=== PATIENT | female | born 1965 | race Two or more races ===

== ENCOUNTER 2024-02-11 13:45 | Inpatient (IN) | payer BC ==
[~2024-02-11] VITALS: Ht 160 cm; Wt 98.0 kg
[~2024-02-11 13:45] MED LIST: LEVO175T4 PO
[2024-02-11 14:42] LABS: Hematocrit 40.5 % (36.0-46.0); Hemoglobin 13.1 g/dL (12.2-16.2); Mean Corpuscular Hemoglobin 27.7 pg (28.0-32.0); Mean Corpuscular Hgb Conc. 32.4 g/dL (32.0-36.0); Mean Corpuscular Volume 85.5 fL (80.0-100.0); Platelet Count (auto) 377 10^3/uL (140-450); Red Blood Cells 4.74 10^6/uL (4.0-5.20); Red Cell Distribution Width 15.2 % (11.8-14.3)
--- NOTE | 2024-02-11 14:47 | ED.PDOC ---
History of Present Illness HPI Comments 58-year-old female who comes in with chief complaint of headache as well as dizziness since 10:00 a.m. this morning. The patient now is also complaining of some nausea. She went to the restroom and states that she really could not get her legs going. She has had a recent UTI. She states that the headache as a 10/10. She is having some mild shortness for breath as well as the epigastric pain and also feels like her arms are squeezing at this time. She is accompanied in the emergency department's by her . 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: No Pertinent 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 History Family History Family History: Family hx of DM, Family hx of heart arlet Social History Smoker: Cigarettes Alcohol: Rarely Drugs: Denies Drug Use Lives In: Home Constitutional: denies: chills, diaphoresis, fatigue, fever, malaise, sweats, weakness, others EENTM: denies: blurred vision, double vision, ear bleeding, ear discharge, ear drainage, ear pain, ear ringing, eye pain, eye redness, hearing loss, mouth pain, mouth swelling, nasal discharge, nose bleeding, nose congestion, nose pain, photophobia, tearing, throat pain, throat swelling, voice changes, others Respiratory: reports: shortness of breath; denies: cough, hemoptysis, orth opnea, SOB at rest, SOB with excertion, stridor, wheezing, others Cardiovascular: denies: chest pain, dizzy spells, diaphoresis, Dyspnea on exertion, edema, irregular heart beat, left arm pain, lightheadedness, palpitations, PND, syncope, others Gastrointestinal: reports: abdominal pain; denies: abdomen distended, blood streaked bowels, constipated, diarrhea, dysphagia, difficulty swallowing, hematemesis, melena, nausea, poor appetite, poor fluid intake, rectal bleeding, rectal pain, vomiting, others Genitourinary: denies: abnormal vagina bleeding, burning, dyspareunia, dysuria, flank pain, frequency, hematuria, incontinence, pain, , vagina discharge, urgency, others Neurological: reports: dizziness; denies: fainting, headache, left sided numbness, left sided weakness, numbness, paresthesia, pre-existing deficit, right sided numbness, right sided weakness, seizure, speech problems, tingling, tremors, weakness, others Musculoskeletal: denies: back pain, gout, joint pain, joint swelling, muscle pain, muscle stiffness, neck pain, others Integumetry: denies: bruises, change in color, change in hair/nails, dryness, laceration, lesions, lumps, rash, wounds, others Allergic/Immunocompromised: denies: Difficulty Healing, Frequent Infections, Hives, Itching, others Hematologic/Lymphatic: denies: anemia, blood clots, easy bleeding, easy bruising, swollen glands, others Endocrine: denies: excessive hunger, excessive sweating, excessive thirst, excessive urination, flushing, intolerance to cold, intolerance to heat, unexplained weight gain, unexplained weight loss, others Psychiatric: denies: anxiety, bipolar disorder, depression, hopeless, panic disorder, schizophrenia, sleepless, suicidal, others Physical Exam General Appearance: Moderate Distress HEENT: Normal ENT Inspection, Pharynx Normal, TMs Normal Neck: Full Range of Motion, Non-Tender, Normal, Normal Inspection Respiratory: Chest Non-Tender, Lungs Clear, No Accessory Muscle Use, No Respiratory Distress, Normal Breath Sounds Cardiovascular: No Edema, No JVD, No Murmur, No Gallop, Normal Peripheral Pulses, Regular Rate/Rhythm Breast Exam: Deferred Gastrointestinal: No Organomegaly, Non Tender, No Pulsatile Mass, Normal Bowel Sounds, Soft Genitalia: Deferred Pelvic: Deferred Rectal: Deferred Extremities: No calf tenderness, Normal capillary refill, Normal inspection, Normal range of motion, Non-tender, No pedal edema Musculoskeletal : Apperance: Normal Neurologic: Alert, lagging machine operator II-XII nml as Tested, No Motor Deficits, Normal Affect, Normal Mood, No Sensory Deficits Cerebellar Function: Normal Reflexes: Normal Skin: Dry, Normal Color, Warm Lymphatic: No Adenopathy Was a procedure done? Was a procedure done?: No EKG EKG : Pulse Rate (adult): 102 [place]: Normal Cardiac Rhythm: ST Block: RBBB ST: Nonsp Differential Dx Considerations may include: Dizziness, ACS, NM, palpitations X-Ray, Labs, Meds, VS Vital Signs Date Time Temp Pulse Resp B/P (MAP) Pulse Ox O2 Delivery O2 Flow Rate FiO2 02/11/24 16:58 102 02/11/24 15:48 18 98 Room Air* 0 21 02/11/24 15:46 97.8 95 18 131/76 (94) 97 97.8 02/11/24 15:46 95 18 98 Room Air 02/11/24 14:15 99.3 107 16 146/83 (104) 95 02/11/24 14:04 102 Lab Test 02/11/24 15:47 02/11/24 15:05 02/11/24 14:00 Range/Units Urine Color Yellow Yellow Urine Clarity Turbid H Clear Urine pH 6.0 5.0-9.0 Urine Specific [place] 1.035 1.001-1.035 Urine Protein 2+ H Negative Urine Ketones Trace Negative Urine Blood Trace H Negative /uL Urine Nitrite Negative Negative Urine Bilirubin Negative Negative Urine Urobilinogen Normal Negative mg/dL Urine Leukocyte Esterase 3+ Negative /uL Urine RBC 33 0 - 4 /hpf Urine WBC 313 0 - 5 /hpf Urine WBC Clumps Present None Seen /hpf Urine Squamous Epithelial Cells Mod <5 /hpf Urine Bacteria None seen None Seen /hpf Urine Mucus Few None Seen Urine Glucose Normal Normal mg/dL Troponin I High Sensitivity 6 6 </=34 ng/L White Blood Count 33.3 *H 4.4-10.8 10^3/uL Red Blood Count 4.74 4.0-5.20 10^6/uL Hemoglobin 13.1 12.2-16.2 g/dL Hematocrit 40.5 36.0-46.0 % Mean Corpuscular Volume 85.5 80.0-100.0 fL Mean Corpuscular Hemoglobin 27.7 L 28.0-32.0 pg Mean Corpuscular Hemoglobin Concent 32.4 32.0-36.0 g/dL Red Cell Distribution Width 15.2 H 11.8-14.3 % Platelet Count 377 140-450 10^3/uL Mean Platelet Volume 8.7 6.9-10.8 fL Neutrophils (%) (Auto) 37.0-80.0 % Lymphocytes (%) (Auto) 10.0-50.0 % Monocytes (%) (Auto) 0.0-12.0 % Basophils (%) (Auto) 0.0-2.0 % Neutrophils # (Auto) 1.6-8.6 10 ^3/uL Lymphocytes # (Auto) 0.4-5.4 10 ^3/uL Monocytes # (Auto) 0-1.3 10 ^3/uL Differential Total Cells Counted 100.0 100 Neutrophils % (Manual) 74 37.0-80.0 Band Neutrophils % (Manual) 19 Lymphocytes % (Manual) 4 L 10.0-50.0 Monocytes % (Manual) 3 0-12 Eosinophils % (Manual) 0 0-7 Basophils % (Manual) 0 0.0-2.0 Metamyelocytes % (manual) 0 Myelocytes % (Manual) 0 Promyelocytes % (Manual) 0 Blast Cells % (Manual) 0 Reactive Lymphocytes 0 Platelet Estimate Adequate Red Blood Cell Morphology Normal Sodium Level 139 136-145 mmol/L Potassium Level 4.0 3.5-5.1 mmol/L Chloride Level 107 98-107 mmol/L Carbon Dioxide Level 22 20-31 mmol/L Anion Gap 10 5-15 Blood Urea Nitrogen 17 9-23 mg/dL Creatinine 1.10 H 0.550-1.02 mg/dL Glomerular Filtration Rate Calc 58 >90 mL/min BUN/Creatinine Ratio 15.5 10.0-20.0 Serum Glucose 148 H 74-106 mg/dL Calcium Level 9.8 8.7-10.4 mg/dL Total Bilirubin 0.8 0.2-1.0 mg/dL Aspartate Amino Transferase (AST) 31 13-40 U/L Alanine Aminotransferase (ALT) 30 7-40 U/L Alkaline Phosphatase 109 46-116 U/L Total Protein 7.0 5.7-8.2 g/dL Albumin 3.8 3.2-4.8 g/dL Lipase 38 12-53 U/L PATIENT: JOB CROWE ACCT: [id number] UNIT: [id number] : 1965 LOC: ER ROOM / BED: / AGE / SEX: 58 / F ADM STATUS: REG ER SERVICE 1420 ORDERING PHYSICIAN: AYDE LEVY MD PROCEDURE(s): HWOCT - HEAD WITHOUT CONTRAST REASON: ZARATE ORDER NUMBER(s): [id number], ACCESSION NUMBER(s): [id number] CLINICAL INFORMATION: 58 years old, Female; headache. TECHNIQUE: Axial imaging was obtained through the brain without contrast. Coronal and sagittal reformatted images were obtained, reviewed, and stored. Images were reviewed in brain and bone windows. All CT scans at this medical facility are performed using dose modulation techniques as appropriate to a performed exam including the following: Automated exposure control was utilized; adjustment of the MA and/or KV according to patient size; and use of iterative reconstruction technique. CTDIvol = 53.81 mGy DLP = 972.01 mGy-cm COMPARISON: None FINDINGS: No acute intracranial hemorrhage. Extra-axial CSF collection along the left lateral convexity adjacent to the left frontal lobe measuring up to 2.1 x 3.6 x 1.2 cm (series 2, image 38 correlating with series 601, image 39), possi ble arachnoid cyst, with mild mass effect on the adjacent sulci. The ventricles and sulci are within normal limits in size for age. Basal cisterns are patent. The calvarium is unremarkable. Paranasal sinuses and mastoid air cells are clear. IMPRESSION: 1. No evidence of acute intracranial hemorrhage. 2. Extra-axial CSF collection along the left lateral convexity adjacent to the left frontal lobe, possible arachnoid cyst, with mild mass effect on the adjacent sulci. ENT: JOB CROWE ACCT: [id number] UNIT: [id number] : 1965 LOC: ER ROOM / BED: / AGE / SEX: 58 / F ADM STATUS: REG ER SERVICE 1413 ORDERING PHYSICIAN: AYDE LEVY MD PROCEDURE(s): CXRP - CHEST PORTABLE REASON: GEN WEAK ORDER NUMBER(s): [id number], ACCESSION NUMBER(s): [id number] CHEST RADIOGRAPH Indication:GEN WEAK Technique: Single frontal view of the chest was obtained Comparison: None FINDINGS: Lines and Tubes: None Lungs: No focal consolidation. Bronchovascular crowding due to low lung volumes. Pleura: No effusion. No pneumothorax. Cardiomediastinal contours: Unremarkable Bones: No acute osseous abnormality. IMPRESSION: No acute cardiopulmonary disease. At this time the patient's CBC is an elevated white blood cell count of 33.3 The chemistry panel is within normal limits The urine test is positive for a UTI The patient was being started on Rocephin 1 g IV piggyback The patient was being admitted Images Reviewed?: Images reviewed and evaluated by me Time of 1ST Reevaluation: 17:36 Reevaluation 1ST: Unchanged Patient Education/Counseling: Diagnosis, Treatment, Prognosis Family Education/Counseling: No Family Present Departure 1 Departure Time of Disposition: 17:35 Impression: Primary Impression: Dizziness Additional Impressions: Generalized weakness UTI (urinary tract infection) Qualified Codes: N30.00 - Acute cystitis without hematuria Disposition: ADMITTED INPATIENT Condition: Fair Critical Care Note Critical Care Time?: Yes (35 min-critical care time only) Stability Stability form required: Yes Unstable for transfer: Telemetry monitoring (Telemetry monitoring required), ED Physician Assesment (Clinical assesment) Heart Score Heart Score: Heart Score Response (Comments) Value History Moderate Suspicious 1 EKG Repolarization Disturb 1 Age 45-64 1 Risk Factors >3 or Hx ASHD 2 Troponin Normal limit 0 Total 5 I personally scribed for AYDE LEVY MD ([email or web address]) on 02/11/24 at 15:53. Electronically submitted by Elvis Westfall ([email or web address]). AYDE LEVY MD Feb 11, 2024 14:47
[2024-02-11 14:50] LABS: White Blood Cell 33.3 10^3/uL (4.4-10.8)
[2024-02-11 14:52] LABS: Basophils % (manual) 0 (0.0-2.0); Blast Cells 0; Eosinophils % (manual) 0 (0-7); Metamyelocytes % 0; Myelocytes % 0; Promyelocytes % 0; Reactive Lymphocytes 0
[2024-02-11 14:59] LABS: Band Neutrophils % (manual) 19; Lymphocytes % (manual) 4 (10.0-50.0); Monocytes % (manual) 3 (0-12); Platelet Estimate Adequate; RBC Morphology Normal
--- NOTE | 2024-02-11 15:00 | DVH ---
CLINICAL INFORMATION: 58 years old, Female; headache. TECHNIQUE: Axial imaging was obtained through the brain without contrast. Coronal and sagittal refor matted images were obtained, reviewed, and stored. Images were reviewed in brain and bone windows. A ll CT scans at this medical facility are performed using dose modulation techniques as appropriate to a performed exam including the following: Automated exposure control was utilized; adjustment of the MA and/or KV according to patient size; and use of iterative reconstruction technique. CTDIvol = 53.81 mGy DLP = 972.01 mGy-cm COMPARISON: None FINDINGS: No acute intracranial hemorrhage. Extra-axial CSF collection along the left lateral conve xity adjacent to the left frontal lobe measuring up to 2.1 x 3.6 x 1.2 cm (series 2, image 38 correla ting with series 601, image 39), possible arachnoid cyst, with mild mass effect on the adjacent sulci . The ventricles and sulci are within normal limits in size for age. Basal cisterns are patent. The calvarium is unremarkable. Paranasal sinuses and mastoid air cells are clear. IMPRESSION: 1. No evidence of acute intracranial hemorrhage. 2. Extra-axial CSF collection along the left lateral convexity adjacent to the left frontal lobe, pos sible arachnoid cyst, with mild mass effect on the adjacent sulci.
[2024-02-11 15:05] LABS: Alanine Aminotransferase 30 U/L (7-40); Albumin 3.8 g/dL (3.2-4.8); Alkaline Phosphatase 109 U/L (46-116); Anion Gap 10 (5-15); Aspartate Aminotransferase 31 U/L (13-40); BUN/Creatinine Ratio 15.5 (10.0-20.0); Bilirubin, Total 0.8 mg/dL (0.2-1.0); Blood Urea Nitrogen 17 mg/dL (9-23); Calcium 9.8 mg/dL (8.7-10.4); Carbon Dioxide 22 mmol/L (20-31); Chloride 107 mmol/L (98-107); Glucose 148 mg/dL (74-106); Sodium 139 mmol/L (136-145)
[2024-02-11 15:21] LABS: Lipase 38 U/L (12-53)
[2024-02-11 15:48] VITALS: RESP 18; O2SAT 98
[2024-02-11 15:53] LABS: Urine Bacteria None Seen /hpf (None Seen)
[2024-02-11 16:04] LABS: Urine Blood TRACE /uL (Negative); Urine Clarity Turbid (Clear); Urine Color Yellow (Yellow); Urine Mucus FEW (None Seen); Urine Protein, UAD 2+ (Negative); Urine Specific Gravity 1.035 (1.001-1.035); Urine Urobilinogen Normal (Negative); Urine WBC 313 /hpf (0 - 5); Urine WBC Clumps PRESENT /hpf (None Seen)
[2024-02-11 17:51] VITALS: BP 151/79; PULSE 65; RESP 17; TEMP 98.4; O2SAT 95
[2024-02-11 18:57] LABS: Lactic Acid w/Reflex 2.3 mmol/L (0.4-2.0)
[2024-02-11] MEDS: cefTRIAXone 1GM/50ML D5W 50 ML IV ONE (19:01)
[2024-02-11 20:00] VITALS: PULSE 86; O2SAT 99
[2024-02-11 22:00] VITALS: BP 128/70; PULSE 95; RESP 18; TEMP 98; O2SAT 95
[2024-02-11] MEDS: SODIUM CHLORIDE 0.9% 1,000 ML IV ONE (22:17)
[2024-02-11] MEDS ORDERED: HYDROcodone-ACET 5/325MG TAB PO PRN (22:30)
[2024-02-11] MEDS ORDERED: TEMAZEPAM 15 MG CAP PO PRN (22:30)
[2024-02-11] MEDS ORDERED: ONDANSETRON HCL 4 MG/2 ML VIAL IV PRN (22:30)
[2024-02-11] MEDS: ACETAMINOPHEN 325 MG TAB PO PRN (23:38)
[2024-02-12] VITALS (7 sets, daily range): BP systolic 131–150; BP diastolic 63–86; PULSE 79–98; RESP 17–20; TEMP 97.7–98.4; O2SAT 93–100
[2024-02-12 04:32] LABS: Basophils # (auto) 0 10 ^3/uL (0-0.2); Basophils % (auto) 0.2 % (0.0-2.0); Eosinophils # (auto) 0.4 10 ^3/uL (0-0.8); Eosinophils % (auto) 2.8 % (0.0-7.0); Hematocrit 38.8 % (36.0-46.0); Hemoglobin 12.6 g/dL (12.2-16.2); Lymphocytes # (auto) 1.8 10 ^3/uL (0.4-5.4); Lymphocytes % (auto) 12.9 % (10.0-50.0); Mean Corpuscular Hemoglobin 27.8 pg (28.0-32.0); Mean Corpuscular Hgb Conc. 32.5 g/dL (32.0-36.0); Mean Corpuscular Volume 85.7 fL (80.0-100.0); Monocytes # (auto) 0.6 10 ^3/uL (0-1.3); Monocytes % (auto) 4.5 % (0.0-12.0); Neutrophils # (auto) 11.3 10 ^3/uL (1.6-8.6); Neutrophils % (auto) 79.6 % (37.0-80.0); Platelet Count (auto) 339 10^3/uL (140-450); Red Blood Cells 4.53 10^6/uL (4.0-5.20); Red Cell Distribution Width 15.5 % (11.8-14.3); White Blood Cell 14.1 10^3/uL (4.4-10.8)
[2024-02-12 04:45] LABS: Alanine Aminotransferase 25 U/L (7-40); Albumin 3.6 g/dL (3.2-4.8); Alkaline Phosphatase 96 U/L (46-116); Anion Gap 8 (5-15); Aspartate Aminotransferase 21 U/L (13-40); BUN/Creatinine Ratio 15.9 (10.0-20.0); Bilirubin, Total 0.4 mg/dL (0.2-1.0); Blood Urea Nitrogen 14 mg/dL (9-23); Calcium 8.8 mg/dL (8.7-10.4); Carbon Dioxide 22 mmol/L (20-31); Chloride 110 mmol/L (98-107); Glucose 147 mg/dL (74-106); Potassium 3.3 mmol/L (3.5-5.1); Sodium 140 mmol/L (136-145)
[2024-02-12 04:46] LABS: Total Protein 6.4 g/dL (5.7-8.2)
[2024-02-12] MEDS ORDERED: HYDR-4491 PO (05:15)
[2024-02-12] MEDS ORDERED: LEVO-849 PO (05:15)
[2024-02-12] MEDS ORDERED: CHOL20007 PO (05:16)
[2024-02-12] MEDS ORDERED: PANT1INJ3 IV (05:18)
[2024-02-12] MEDS: LEVOTHYROXINE SODIUM 50 MCG TAB PO SCH (05:44)
--- NOTE | 2024-02-12 06:28 | DVHHP2 ---
History of Present Illness Reason for Visit: Generalized weakness History of Present Illness 68-year-old female presents for evaluation of generalized weakness. Patient reports a one day history of generalized weakness with associated dizziness and occasional nausea. She also reports dysuria. Denies cardiac or respiratory co mplaints. No unilateral weakness or slurred speech. Past Medical History Thyroid and lupus Past Surgical History , thyroidectomy I cholecystectomy Family History Diabetes mellitus and heart disease Smoke: <1 pack per day ALCOHOL: occassional Drugs: None Review of Systems Review of Systems Review of systems are currently negative otherwise dressing HPI. Allergies: Coded Allergies: Codeine (Verified Adverse Reaction, Mild, Stomach pain, 02/11/24) Uncoded Allergies: NKDA (Allergy, Unknown, 02/11/24) Medications Current Medications Medications Dose Ordered Sig/Karen Route Start Time Stop Time Status Last Admin Dose Admin Levothyroxine Sodium 175 mcg QAM@0600 PO 02/12/24 06:00 02/12/24 05:44 175 MCG Acetaminophen/ Hydrocodone Bitart 1 tab Q4HP PRN PO 02/11/24 22:30 Temazepam 15 mg QHSP PRN PO 02/11/24 22:30 Ondansetron HCl 4 mg Q4HP PRN IV 02/11/24 22:30 Acetaminophen 650 mg Q6HP PRN PO 02/11/24 22:30 02/12/24 05:43 650 MG Exam Vital Signs Vital Signs Date Time Temp Pulse Resp B/P (MAP) Pulse Ox O2 Delivery O2 Flow Rate FiO2 02/12/24 03:15 79 18 100 Room Air* 0 21 02/12/24 01:55 97.7 131/67 (88) 97.7 Exam Gen: 58-year-old female in mild distress Skin: Warm, dry, normal color and texture, no rash. HEENT: Normocephalic atraumatic, mucous membranes moist and pink. Neck: Cervical and supraclavicular nodes normal without enlargement, trachea is midline, thyroid gland is normal without masses. Pulmonary: Clear to auscultation and percussion bilaterally. Cardiac: Regular rate and rhythm. No murmur Abdomen: Soft, nontender, nondistended, bowel sounds present all 4 quadrants, no guarding, no rigidity, no organomegaly. Extremities: No cyanosis, clubbing, no edema Neuro: Cranial nerves II through XII grossly intact, normal affect and speech, no focal motor deficits. Labs/Xrays ORDERING PHYSICIAN: AYDE LEVY MD PROCEDURE(s): CXRP - CHEST PORTABLE REASON: GEN WEAK ORDER NUMBER(s): [id number], ACCESSION NUMBER(s): [id number] CHEST RADIOGRAPH Indication:GEN WEAK Technique: Single frontal view of the chest was obtained Comparison: None FINDINGS: Lines and Tubes: None Lungs: No focal consolidation. Bronchovascular crowding due to low lung volumes. Pleura: No effusion. No pneumothorax. Cardiomediastinal contours: Unremarkable Bones: No acute osseous abnormality. IMPRESSION: No acute cardiopulmonary disease. RING PHYSICIAN: AYDE LEVY MD PROCEDURE(s): HWOCT - HEAD WITHOUT CONTRAST REASON: ZARATE ORDER NUMBER(s): [id number], ACCESSION NUMBER(s): [id number] CLINICAL INFORMATION: 58 years old, Female; headache. TECHNIQUE: Axial imaging was obtained through the brain without contrast. Coronal and sagittal reformatted images were obtained, reviewed, and stored. Images were reviewed in brain and bone windows. All CT scans at this medical facility are performed using dose modulation techniques as appropriate to a performed exam including the following: Automated exposure control was utilized; adjustment of the MA and/or KV according to patient size; and use of iterative reconstruction technique. CTDIvol = 53.81 mGy DLP = 972.01 mGy-cm COMPARISON: None FINDINGS: No acute intracranial hemorrhage. Extra-axial CSF collection along the left lateral convexity adjacent to the left frontal lobe measuring up to 2.1 x 3.6 x 1.2 cm (series 2, image 38 correlating with series 601, image 39), possible arachnoid cyst, with mild mass effect on the adjacent sulci. The ventricles and sulci are within normal limits in size for age. Basal cisterns are patent. The calvarium is unremarkable. Paranasal sinuses and mastoid air cells are clear. IMPRESSION: 1. No evidence of acute intracranial hemorrhage. 2. Extra-axial CSF collection along the left lateral convexity adjacent to the left frontal lobe, possible arachnoid cyst, with mild mass effect on the wilma cent sulci. Labs Test 02/12/24 04:19 02/11/24 20:51 02/11/24 18:20 02/11/24 15:47 Range/Units White Blood Count 14.1 #H 4.4-10.8 10^3/uL Red Blood Count 4.53 4.0-5.20 10^6/uL Hemoglobin 12.6 12.2-16.2 g/dL Hematocrit 38.8 36.0-46.0 % Mean Corpuscular Volume 85.7 80.0-100.0 fL Mean Corpuscular Hemoglobin 27.8 L 28.0-32.0 pg Mean Corpuscular Hemoglobin Concent 32.5 32.0-36.0 g/dL Red Cell Distribution Width 15.5 H 11.8-14.3 % Platelet Count 339 140-450 10^3/uL Mean Platelet Volume 8.2 6.9-10.8 fL Neutrophils (%) (Auto) 79.6 37.0-80.0 % Lymphocytes (%) (Auto) 12.9 10.0-50.0 % Monocytes (%) (Auto) 4.5 0.0-12.0 % Eosinophils (%) (Auto) 2.8 0.0-7.0 % Basophils (%) (Auto) 0.2 0.0-2.0 % Neutrophils # (Auto) 11.3 H 1.6-8.6 10 ^3/uL Lymphocytes # (Auto) 1.8 0.4-5.4 10 ^3/uL Monocytes # (Auto) 0.6 0-1.3 10 ^3/uL Eosinophils # (Auto) 0.4 0-0.8 10 ^3/uL Basophils # (Auto) 0 0-0.2 10 ^3/uL Nucleated Red Blood Cells 0.0 % Sodium Level 140 136-145 mmol/L Potassium Level 3.3 L 3.5-5.1 mmol/L Chloride Level 110 H 98-107 mmol/L Carbon Dioxide Level 22 20-31 mmol/L Anion Gap 8 5-15 Blood Urea Nitrogen 14 9-23 mg/dL Creatinine 0.88 0.550-1.02 mg/dL Glomerular Filtration Rate Calc 76 >90 mL/min BUN/Creatinine Ratio 15.9 10.0-20.0 Serum Glucose 147 H 74-106 mg/dL Calcium Level 8.8 8.7-10.4 mg/dL Total Bilirubin 0.4 0.2-1.0 mg/dL Aspartate Amino Transferase (AST) 21 13-40 U/L Alanine Aminotransferase (ALT) 25 7-40 U/L Alkaline Phosphatase 96 46-116 U/L Total Protein 6.4 5.7-8.2 g/dL Albumin 3.6 3.2-4.8 g/dL Lactic Acid Level 2.3 *H 0.4-2.0 mmol/L Troponin I High Sensitivity 7 </=34 ng/L Thyroid Stimulating Hormone (TSH) 0.74 0.55-4.78 uIU/mL Urine Color Yellow Yellow Urine Clarity Turbid H Clear Urine pH 6.0 5.0-9.0 Urine Specific [place] 1.035 1.001-1.035 Urine Protein 2+ H Negative Urine Ketones Trace Negative Urine Blood Trace H Negative /uL Urine Nitrite Negative Negative Urine Bilirubin Negative Negative Urine Urobilinogen Normal Negative mg/dL Urine Leukocyte Esterase 3+ Negative /uL Urine RBC 33 0 - 4 /hpf Urine WBC 313 0 - 5 /hpf Urine WBC Clumps Present None Seen /hpf Urine Squamous Epithelial Cells Mod <5 /hpf Urine Bacteria None seen None Seen /hpf Urine Mucus Few None Seen Urine Glucose Normal Normal mg/dL Test 02/11/24 14:00 Range/Units Differential Total Cells Counted 100.0 100 Neutrophils % (Manual) 74 37.0-80.0 Band Neutrophils % (Manual) 19 Lymphocytes % (Manual) 4 L 10.0-50.0 Monocytes % (Manual) 3 0-12 Eosinophils % (Manual) 0 0-7 Basophils % (Manual) 0 0.0-2.0 Metamyelocytes % (manual) 0 Myelocytes % (Manual) 0 Promyelocytes % (Manual) 0 Blast Cells % (Manual) 0 Reactive Lymphocytes 0 Platelet Estimate Adequate Red Blood Cell Morphology Normal Lipase 38 12-53 U/L Assessment/Plan Assessment/Plan Assessment Sepsis Urinary tract infection Leukocytosis Thyroid Plan [facility] IV fluids Rocephin Blood cultures pending Resume home medications Continue treatment per orders. Plan discussed with: Patient My Orders Orders - KARLA VALENCIACNP Procedure Category Date Status Time Urine Bacterial YUE 02/11/24 Logged Culture 22:28 Levothyroxine Tablet PHA 02/12/24 In Process (Synthroid Tablet) 06:00 Regular Diet DIET 02/12/24 Transmitted Breakfast Admit ADMIT 02/11/24 Transmitted 22:28 Hydrocodone-Acet PHA 02/11/24 In Process 5/325mg Tab ([place] 22:30 Temazepam (Restoril) PHA 02/11/24 In Process 22:30 Ondansetron Hcl PHA 02/11/24 In Process (Zofran) 22:30 Cardiac DIET 02/12/24 Transmitted Diet-2gna,Lofat,Lochol Breakfast Condition: Fair MEDHAT 02/11/24 In Process 22:28 Acetaminophen Tablet PHA 02/11/24 In Process (Tylenol Tablet) 22:30 Bedrest With Bathroom MEDHAT 02/11/24 In Process Privileg 22:28 NS PHA 02/12/24 Verified 06:30 Potassium Er Tablet PHA 02/12/24 Verified (Klor-Con Tablet) 06:30 Date of Service: Feb 11, 2024 Billing Provider: KARLA VALENCIA Common Visit Codes: [id number] INP/OBS CARE (HIGH) KARLA VALENCIA Feb 12, 2024 06:28
[2024-02-12] MEDS: SODIUM CHLORIDE 0.9% 500 ML IV ONE (06:47)
[2024-02-12] MEDS: POTASSIUM CHL 20 Meq TABLET PO ONE (06:47)
[2024-02-12 08:32] LABS: Hepatitis B Surface Antigen Negative (Negative)
[2024-02-12 08:53] LABS: Hepatitis C Antibody Negative (Negative)
--- NOTE | 2024-02-12 11:06 | DVHPN2 ---
Subjective Patient is seen and examined at bedside. Still have minimal dizziness. Reviewed: Care Plan, H&P, Labs, Medications, Previous Orders, Radiology Changes from previous H/P or p: No Changes Objective Vitals Vital Signs Date Time Temp Pulse Resp B/P (MAP) Pulse Ox O2 Delivery O2 Flow Rate FiO2 02/12/24 09:00 98.1 83 20 150/63 (92) 98 98.1 02/12/24 03:15 Room Air* 0 21 Intake/Output Intake and Output 02/12/24 07:00 Intake Total 1000 ml Balance 1000 ml Intake IV Total 1000 ml General Appearance: Alert, Oriented X3, Cooperative, No acute distress HEENT: Atraumatic, PERRLA, EOMI, Mucous membr. moist/pink Neck: Supple Lungs: Clear to auscultation, Normal air movement Cardiovascular: Regular rate, Normal S1, Normal S2, No murmurs, Gallops, Rubs Abdomen: Normal bowel sounds, Soft, No tenderness, No hepatospenomegaly, No masses Extremities: Normal pulses Neuro: Cranial nerves 3-12 NL Psych/Mental Status: Mental status NL Medications Current Medications Medications Dose Ordered Sig/Karen Route Start Time Stop Time Status Last Admin Dose Admin Levothyroxine Sodium 175 mcg QAM@0600 PO 02/12/24 06:00 02/12/24 05:44 175 MCG Acetaminophen/ Hydrocodone Bitart 1 tab Q4HP PRN PO 02/11/24 22:30 Temazepam 15 mg QHSP PRN PO 02/11/24 22:30 Ondansetron HCl 4 mg Q4HP PRN IV 02/11/24 22:30 Acetaminophen 650 mg Q6HP PRN PO 02/11/24 22:30 02/12/24 05:43 650 MG Laboratory Results Laboratory Tests 02/12/24 04:19 Chemistry Test 02/11/24 14:00 02/12/24 04:19 Albumin 3.8 g/dL (3.2-4.8) 3.6 g/dL (3.2-4.8) Calcium Level 9.8 mg/dL (8.7-10.4) 8.8 mg/dL (8.7-10.4) Total Protein 7.0 g/dL (5.7-8.2) 6.4 g/dL (5.7-8.2) Lipid panel Test 02/11/24 14:00 Lipase 38 U/L (12-53) LFT Test 02/11/24 14:00 02/12/24 04:19 Alanine Aminotransferase (ALT) 30 U/L (7-40) 25 U/L (7-40) Alkaline Phosphatase 109 U/L (46-116) 96 U/L (46-116) Aspartate Amino Transferase (AST) 31 U/L (13-40) 21 U/L (13-40) Total Bilirubin 0.8 mg/dL (0.2-1.0) 0.4 mg/dL (0.2-1.0) HgA1c, TSH Test 02/11/24 18:20 Thyroid Stimulating Hormone (TSH) 0.74 uIU/mL (0.55-4.78) Urinalysis Test 02/11/24 15:47 Urine Color Yellow (Yellow) Urine Clarity Turbid (Clear) H Urine pH 6.0 (5.0-9.0) Urine Specific [place] 1.035 (1.001-1.035) Urine Protein 2+ (Negative) H Urine Ketones Trace (Negative) Urine Blood Trace /uL (Negative) H Urine Nitrite Negative (Negative) Urine Bilirubin Negative (Negative) Urine Urobilinogen Normal mg/dL (Negative) Urine Leukocyte Esterase 3+ /uL (Negative) Urine RBC 33 /hpf (0 - 4) Urine WBC 313 /hpf (0 - 5) Urine WBC Clumps Present /hpf (None Seen) Urine Squamous Epithelial Cells Mod /hpf (<5) Urine Bacteria None seen /hpf (None Seen) Urine Mucus Few (None Seen) Urine Glucose Normal mg/dL (Normal) Labs and/or images reviewed: Labs reviewed by me Assessment/Plan Assessment/Plan Sepsis Urinary tract infection Leukocytosis Hypothyroidism Continuing current management. Continuing with IV antibiotic. Explained to the patient that her CT head is negative for acute process. We will continuing with IV fluid. I will follow up with culture. Plan discussed with: Patient Date of Service: Feb 12, 2024 Billing Provider: REDD CLARK MD Common Visit Codes: [id number] INP/OBS CARE(HIGH) REDD CLARK MD Feb 12, 2024 11:06
[2024-02-13] VITALS (8 sets, daily range): BP systolic 138–167; BP diastolic 70–93; PULSE 61–84; RESP 17–18; TEMP 97.6–98.4; O2SAT 94–99
[2024-02-13] MEDS: cefTRIAXone 1GM/50ML D5W 50 ML IV SCH (10:30)
--- NOTE | 2024-02-13 11:10 | DVHPN2 ---
Subjective Patient is seen and examined at bedside. Still have minimal dizziness. Reviewed: Care Plan, H&P, Labs, Medications, Previous Orders, Radiology Changes from previous H/P or p: No Changes Objective Vitals Vital Signs Date Time Temp Pulse Resp B/P (MAP) Pulse Ox O2 Delivery O2 Flow Rate FiO2 02/13/24 05:30 74 150/93 (112) 02/13/24 05:00 98.0 17 97 98.0 02/12/24 20:00 Room Air* 0 21 Intake/Output Intake and Output 02/13/24 07:00 Intake Total 2660 ml Balance 2660 ml Intake Oral 2660 ml # Voids 11 # Bowel Movements 2 General Appearance: Alert, Oriented X3, Cooperative, No acute distress HEENT: Atraumatic, PERRLA, EOMI, Mucous membr. moist/pink Neck: Supple Lungs: Clear to auscultation, Normal air movement Cardiovascular: Regular rate, Normal S1, Normal S2, No murmurs, Gallops, Rubs Abdomen: Normal bowel sounds, Soft, No tenderness, No hepatospenomegaly, No masses Extremities: Normal pulses Neuro: Cranial nerves 3-12 NL Psych/Mental Status: Mental status NL Medications Current Medications Medications Dose Ordered Sig/Karen Route Start Time Stop Time Status Last Admin Dose Admin Levothyroxine Sodium 175 mcg QAM@0600 PO 02/12/24 06:00 02/13/24 06:31 175 MCG Acetaminophen/ Hydrocodone Bitart 1 tab Q4HP PRN PO 02/11/24 22:30 Temazepam 15 mg QHSP PRN PO 02/11/24 22:30 Ondansetron HCl 4 mg Q4HP PRN IV 02/11/24 22:30 Acetaminophen 650 mg Q6HP PRN PO 02/11/24 22:30 02/13/24 07:18 650 MG Ceftriaxone Sodium 50 ml @ 100 mls/hr DAILY@09 IV 02/13/24 09:00 02/13/24 10:30 100 MLS/HR Laboratory Results Laboratory Tests 02/12/24 04:19 Urinalysis Test 02/11/24 15:47 Urine Color Yellow (Yellow) Urine Clarity Turbid (Clear) H Urine pH 6.0 (5.0-9.0) Urine Specific [place] 1.035 (1.001-1.035) Urine Protein 2+ (Negative) H Urine Ketones Trace (Negative) Urine Blood Trace /uL (Negative) H Urine Nitrite Negative (Negative) Urine Bilirubin Negative (Negative) Urine Urobilinogen Normal mg/dL (Negative) Urine Leukocyte Esterase 3+ /uL (Negative) Urine RBC 33 /hpf (0 - 4) Urine WBC 313 /hpf (0 - 5) Urine WBC Clumps Present /hpf (None Seen) Urine Squamous Epithelial Cells Mod /hpf (<5) Urine Bacteria None seen /hpf (None Seen) Urine Mucus Few (None Seen) Urine Glucose Normal mg/dL (Normal) Microbiology Microbiology Date/Time Source Procedure Growth Status 02/11/24 18:20 Blood Blood Culture - Preliminary NO GROWTH AFTER 24 HOURS OF INCUBATION. Resulted Labs and/or images reviewed: Labs reviewed by me Assessment/Plan Assessment/Plan Sepsis Urinary tract infection Leukocytosis Hypothyroidism Continuing current management. Continuing with IV antibiotic. We will continuing with IV fluid. I will follow up with culture. PT to get the patient out of bed and ambulate.. Discharge planing. Plan discussed with: Patient My Orders Orders - REDD CLARK MD Procedure Category Date Status Time Ceftriaxone 1gm/50ml PHA 02/13/24 In Process D5w (Rocephin) 09:00 Date of Service: Feb 13, 2024 Billing Provider: REDD CLARK MD Common Visit Codes: [id number] INP/OBS CARE(HIGH) REDD CLARK MD Feb 13, 2024 11:10
--- NOTE | 2024-02-13 12:44 | ECG ---
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
[2024-02-13] MEDS: SODIUM CHLORIDE 0.9% 1,000 ML IV SCH (15:30)
[2024-02-13] MEDS: hydrOXYchloroQUINE SULFATE 200 MG TAB PO SCH (21:12)
[2024-02-14] VITALS (7 sets, daily range): BP systolic 133–159; BP diastolic 52–84; PULSE 67–75; RESP 18–20; TEMP 97.7–98.2; O2SAT 93–97
[2024-02-14] MEDS: LEVOTHYROXINE SODIUM 50 MCG TAB PO SCH (06:02)
[2024-02-14 07:11] LABS: Basophils # (auto) 0.1 10 ^3/uL (0-0.2); Basophils % (auto) 0.6 % (0.0-2.0); Eosinophils # (auto) 0.2 10 ^3/uL (0-0.8); Eosinophils % (auto) 2.7 % (0.0-7.0); Hematocrit 40.1 % (36.0-46.0); Hemoglobin 13.5 g/dL (12.2-16.2); Lymphocytes # (auto) 2.4 10 ^3/uL (0.4-5.4); Mean Corpuscular Hemoglobin 28.6 pg (28.0-32.0); Mean Corpuscular Hgb Conc. 33.8 g/dL (32.0-36.0); Mean Corpuscular Volume 84.5 fL (80.0-100.0); Monocytes # (auto) 0.7 10 ^3/uL (0-1.3); Monocytes % (auto) 7.8 % (0.0-12.0); Neutrophils # (auto) 5.5 10 ^3/uL (1.6-8.6); Neutrophils % (auto) 61.9 % (37.0-80.0); Platelet Count (auto) 356 10^3/uL (140-450); Red Blood Cells 4.74 10^6/uL (4.0-5.20); White Blood Cell 8.8 10^3/uL (4.4-10.8)
[2024-02-14] MEDS: CHOLECALCIFEROL (VITD3) 1,000UNIT=25mCg TAB GT SCH (09:26)
--- NOTE | 2024-02-14 11:15 | DVHPN2 ---
Subjective Patient is seen and examined at bedside. Still have minimal dizziness. Reviewed: Care Plan, H&P, Labs, Medications, Previous Orders, Radiology Objective Vitals Vital Signs Date Time Temp Pulse Resp B/P (MAP) Pulse Ox O2 Delivery O2 Flow Rate FiO2 02/14/24 09:00 98.0 68 20 151/76 (101) 95 98.0 02/14/24 08:00 Room Air* 0 21 Intake/Output Intake and Output 02/14/24 07:00 Intake Total 2630 ml Output Total 500 ml Balance 2130 ml Intake Oral 2580 ml IV Total 50 ml Output Urine Total 500 ml # Voids 3 # Bowel Movements 2 General Appearance: Alert, Oriented X3, Cooperative, No acute distress HEENT: Atraumatic, PERRLA, EOMI, Mucous membr. moist/pink Neck: Supple Lungs: Clear to auscultation, Normal air movement Cardiovascular: Regular rate, Normal S1, Normal S2, No murmurs, Gallops, Rubs Abdomen: Normal bowel sounds, Soft, No tenderness, No hepatospenomegaly, No masses Extremities: Normal pulses Neuro: Cranial nerves 3-12 NL Psych/Mental Status: Mental status NL Medications Current Medications Medications Dose Ordered Sig/Karen Route Start Time Stop Time Status Last Admin Dose Admin Acetaminophen/ Hydrocodone Bitart 1 tab Q4HP PRN PO 02/11/24 22:30 Temazepam 15 mg QHSP PRN PO 02/11/24 22:30 Ondansetron HCl 4 mg Q4HP PRN IV 02/11/24 22:30 Acetaminophen 650 mg Q6HP PRN PO 02/11/24 22:30 02/13/24 07:18 650 MG Ceftriaxone Sodium 50 ml @ 100 mls/hr DAILY@09 IV 02/13/24 09:00 02/14/24 09:26 100 MLS/HR Hydroxychloroquine Sulfate 200 mg BID PO 02/13/24 22:00 02/14/24 09:26 200 MG Cholecalciferol 2,000 unit DAILY GT 02/14/24 10:00 02/14/24 09:26 2,000 UNIT Levothyroxine Sodium 175 mcg QAM PO 02/14/24 07:00 02/14/24 06:02 175 MCG Sodium Chloride 1,000 ml @ 75 mls/hr [id number] IV 02/13/24 15:15 02/14/24 02:16 75 MLS/HR Laboratory Results Laboratory Tests 02/12/24 04:19 02/14/24 06:25 Urinalysis Test 02/11/24 15:47 Urine Color Yellow (Yellow) Urine Clarity Turbid (Clear) H Urine pH 6.0 (5.0-9.0) Urine Specific [place] 1.035 (1.001-1.035) Urine Protein 2+ (Negative) H Urine Ketones Trace (Negative) Urine Blood Trace /uL (Negative) H Urine Nitrite Negative (Negative) Urine Bilirubin Negative (Negative) Urine Urobilinogen Normal mg/dL (Negative) Urine Leukocyte Esterase 3+ /uL (Negative) Urine RBC 33 /hpf (0 - 4) Urine WBC 313 /hpf (0 - 5) Urine WBC Clumps Present /hpf (None Seen) Urine Squamous Epithelial Cells Mod /hpf (<5) Urine Bacteria None seen /hpf (None Seen) Urine Mucus Few (None Seen) Urine Glucose Normal mg/dL (Normal) Microbiology Microbiology Date/Time Source Procedure Growth Status 02/11/24 18:20 Blood Blood Culture - Preliminary NO GROWTH AFTER 48 HOURS OF INCUBATION. Resulted Assessment/Plan Assessment/Plan Sepsis Urinary tract infection Leukocytosis Hypothyroidism Continuing current management. Continuing with IV antibiotic. We will continuing with IV fluid. I will follow up with culture. PT to get the patient out of bed and ambulate.. Discharge planing. My Orders Orders - REDD CLARK MD Procedure Category Date Status Time Hydroxychloroquine PHA 02/13/24 In Process Tablet (Plaquenil Tab 22:00 Cholecalciferol PHA 02/14/24 In Process Tablet (Vitamin D3 10:00 Levothyroxine Tablet PHA 02/14/24 In Process (Synthroid Tablet) 07:00 Sodium Chloride 0.9% PHA 02/13/24 In Process 15:15 Complete Blood Count LAB 02/15/24 Verified 05:00 Complete Blood Count LAB 02/16/24 Verified 05:00 Basic Metabolic Panel LAB 02/15/24 Verified 05:00 Basic Metabolic Panel LAB 02/16/24 Verified 05:00 Basic Metabolic Panel LAB 02/17/24 Verified 05:00 REDD CLARK MD Feb 14, 2024 11:15
[2024-02-14] MEDS ORDERED: LEVO500T91 PO (13:04)
[2024-02-14] MEDS ORDERED: LOSA-533 PO (13:05)
--- NOTE | 2024-02-14 13:06 | DVHDS2 ---
Discharge Summary Date of Admission Feb 11, 2024 at 22:28 Date of Discharge: Feb 14, 2024 Admitting Diagnosis Sepsis Urinary tract infection Leukocytosis Hypothyroidism Labs/Diagnostic Data: Laboratory Results Test 02/14/24 06:25 02/12/24 04:19 02/11/24 20:51 02/11/24 18:20 White Blood Count 8.8 10^3/uL (4.4-10.8) Red Blood Count 4.74 10^6/uL (4.0-5.20) Hemoglobin 13.5 g/dL (12.2-16.2) Hematocrit 40.1 % (36.0-46.0) Mean Corpuscular Volume 84.5 fL (80.0-100.0) Mean Corpuscular Hemoglobin 28.6 pg (28.0-32.0) Mean Corpuscular Hemoglobin Concent 33.8 g/dL (32.0-36.0) Red Cell Distribution Width 15.0 % (11.8-14.3) Platelet Count 356 10^3/uL (140-450) Mean Platelet Volume 8.6 fL (6.9-10.8) Neutrophils (%) (Auto) 61.9 % (37.0-80.0) Lymphocytes (%) (Auto) 27.0 % (10.0-50.0) Monocytes (%) (Auto) 7.8 % (0.0-12.0) Eosinophils (%) (Auto) 2.7 % (0.0-7.0) Basophils (%) (Auto) 0.6 % (0.0-2.0) Neutrophils # (Auto) 5.5 10 ^3/uL (1.6-8.6) Lymphocytes # (Auto) 2.4 10 ^3/uL (0.4-5.4) Monocytes # (Auto) 0.7 10 ^3/uL (0-1.3) Eosinophils # (Auto) 0.2 10 ^3/uL (0-0.8) Basophils # (Auto) 0.1 10 ^3/uL (0-0.2) Nucleated Red Blood Cells 0.0 % Sodium Level 140 mmol/L (136-145) Potassium Level 3.3 mmol/L (3.5-5.1) Chloride Level 110 mmol/L (98-107) Carbon Dioxide Level 22 mmol/L (20-31) Anion Gap 8 (5-15) Blood Urea Nitrogen 14 mg/dL (9-23) Creatinine 0.88 mg/dL (0.550-1.02) Glomerular Filtration Rate Calc 76 mL/min (>90) BUN/Creatinine Ratio 15.9 (10.0-20.0) Serum Glucose 147 mg/dL (74-106) Calcium Level 8.8 mg/dL (8.7-10.4) Total Bilirubin 0.4 mg/dL (0.2-1.0) Aspartate Amino Transferase (AST) 21 U/L (13-40) Alanine Aminotransferase (ALT) 25 U/L (7-40) Alkaline Phosphatase 96 U/L (46-116) Total Protein 6.4 g/dL (5.7-8.2) Albumin 3.6 g/dL (3.2-4.8) Lactic Acid Level 2.3 mmol/L (0.4-2.0) Troponin I High Sensitivity 7 ng/L (</=34) Thyroid Stimulating Hormone (TSH) 0.74 uIU/mL (0.55-4.78) Test 02/11/24 15:47 02/11/24 14:00 Urine Color Yellow (Yellow) Urine Clarity Turbid (Clear) Urine pH 6.0 (5.0-9.0) Urine Specific [place] 1.035 (1.001-1.035) Urine Protein 2+ (Negative) Urine Ketones Trace (Negative) Urine Blood Trace /uL (Negative) Urine Nitrite Negative (Negative) Urine Bilirubin Negative (Negative) Urine Urobilinogen Normal mg/dL (Negative) Urine Leukocyte Esterase 3+ /uL (Negative) Urine RBC 33 /hpf (0 - 4) Urine WBC 313 /hpf (0 - 5) Urine WBC Clumps Present /hpf (None Seen) Urine Squamous Epithelial Cells Mod /hpf (<5) Urine Bacteria None seen /hpf (None Seen) Urine Mucus Few (None Seen) Urine Glucose Normal mg/dL (Normal) Differential Total Cells Counted 100.0 (100) Neutrophils % (Manual) 74 (37.0-80.0) Band Neutrophils % (Manual) 19 Lymphocytes % (Manual) 4 (10.0-50.0) Monocytes % (Manual) 3 (0-12) Eosinophils % (Manual) 0 (0-7) Basophils % (Manual) 0 (0.0-2.0) Metamyelocytes % (manual) 0 Myelocytes % (Manual) 0 Promyelocytes % (Manual) 0 Blast Cells % (Manual) 0 Reactive Lymphocytes 0 Platelet Estimate Adequate Red Blood Cell Morphology Normal Lipase 38 U/L (12-53) Hepatitis B Surface Antigen Negative (Negative) Hepatitis C Antibody Negative (Negative) Other Laboratory Tests 02/14/24 06:25 02/12/24 04:19 Brief Hx & Hospital Course: This is a 68 year-old female come in to the hospital because of weakness. She had weakness, dizziness, and nausea for one day. She also had dysuria. Urine showed positive for leukocyte esterase. WBC is in 30,000s. The patient was admitted. Blood cultures negative. The patient was put on IV antibiotic with Rocephin. WBC improved. No nausea or vomiting. Weakness improved. Patient able to ambulate and tolerate diet. So I am going to discharge her home today. Advised her to follow up with primary care physician 1-2 weeks. Activity as tolerated. Diet per home diet. Noted that during this hospitalization we found the patient had elevation of blood pressure 3 consecutive day. The patient's systolic blood pressure was 150-160. So I start the patient on losartan 25 mg one tablet p.o. daily. Advised her to discuss with her primary care physician and closely follow up with her blood pressure. Physical exam: HEENT: Normocephalic atraumatic pupils equal react to light and accommodation. Extraocular muscles intact, conjunctiva pink, oropharynx moist, no thrush, no exudate. Lymphatic: No lymphadenopathy Cardiovascular exam: S1, S2 was heard. No murmurs, rubs, gallops Lung: Clear on auscultation bilaterally, no wheeze, rale, rhonchi. GI: Abdominal soft, nondistended, nontenderness, positive bowel sounds. Extremity: No crepitus, cyanosis, edema. Pedal pulses present bilateral. Full range of motion. Skin: Normal turgor, no rash. Psych: Alert, oriented x3. Neurology: No focal deficits, cranial nerve II to XII grossly intact. Condition at Discharge: Stable Final Diagnosis/Problems List Sepsis Hypertension, new onset. Urinary tract infection Leukocytosis Hypothyroidism Discharge Disposition: Home Discharge Instruct/Medications Diet: Cardiac 2g Na,low cholest Activity: No Restrictions, As Tolerated Follow Up/Referral: pcp 1-2 weeks Medications: losartan 25mg po daily levaquin 500mg daily Discharge Statement: "Patient was advised to return to the ER or call 911 if any headaches, dizziness, shortness of breath, chest pain, abdominal pain, bleeding, fevers, or worsening of medical condition. Patient was counseled about treatment plan, medications, possible side effects, patientverbalized understanding. All questions were answered to the best of my ability. This discharge took greater then 30 minutes in planning, reviewing documentation, counseling the patient, and discussing with other team members." ASSESSMENT ASSESSMENT Assessment UTI HTN ,new onset Date of Service: Feb 14, 2024 Billing Provider: REDD CLARK MD Common Visit Codes: 74675-GRL/OBS DISCH DAY >30min REDD CLARK MD Feb 14, 2024 13:06
[2024-02-14] MEDS: hydrALAZINE HCL 20 MG/ML VL IV ONE (13:53)
== END 2024-02-14 14:47 | disposition home or self-care (01) | DRG 872 ==
LOC: ER 13:45 → OVERFLOW 22:28 → CENTRAL 22:31
PROVIDERS: ADMIT Nurse Practitioner; ATTEND Internal Medicine
DX: A41.9 Sepsis, unspecified organism (principal); N39.0 Urinary tract infection, site not specified; E03.9 Hypothyroidism, unspecified; I10 Essential (primary) hypertension; F17.210 Nicotine dependence, cigarettes, uncomplicated; Z90.49 Acquired absence of other specified parts of digestive tract; Z83.3 Family history of diabetes mellitus; Z85.850 Personal history of malignant neoplasm of thyroid; Z79.899 Other long term (current) drug therapy
CPT/HCPCS: 36415; 70450; 71045; 80053; 81001; 83605; 83690; 84443; 84484; 85007; 85025; 85027; 86803; 87040; 87340; 93005; 99291; G0378

== ENCOUNTER 2024-03-12 15:38 | Emergency (ER) | payer BC ==
[~2024-03-12] VITALS: Ht 160 cm; Wt 91.7 kg
[~2024-03-12 15:38] MED LIST changes: +CHOL20007 PO; +HYDR-4491 PO; +LEVO500T91 PO; +LOSA-533 PO; +PANT1INJ3 IV
[2024-03-12 15:47] VITALS: BP 128/75; PULSE 97; RESP 18; O2SAT 95
--- NOTE | 2024-03-12 16:37 | ED.PDOC ---
History of Present Illness HPI Comments 58 y/o F presents with c/o cough, congestion, generalized bodyaches, and abnormal vaginal bleeding, today. Patient endorses on having persisting cough and congestion for the past 4x days, with intermittent bodyaches. She states bodyaches beginning to subside upon arrival to ED. She also comments on noticing blood in the tissue paper she used to wipe when going to her bathroom to urinate, today, amidst her LMP being 4 years ago following onset of menopause then. She denies having any hemoptysis, phlegm production, fever, chills, or other associated symptoms or modifiers at this time. Chief Complaint: Vaginal Bleed Time Seen by MD: 16:00 Primary Care Provider: JENNIFER Bryant Notes: Nurses Notes, Medications, Allergies Allergies: Coded Allergies: Codeine (Verified Adverse Reaction, Mild, Stomach pain, 02/11/24) Uncoded Allergies: NKDA (Allergy, Unknown, 02/11/24) Home Meds Active Scripts Losartan Potassium (Losartan Potassium) 25 Mg Tab, 1 TAB PO DAILY, #90 TAB 1 Refill Prov:REDD CLARK MD 02/14/24 Levofloxacin Hemihydrate (LEVAQUIN 500 MG) 500 Mg Tab, 1 TAB PO DAILY, #7 TAB Prov:REDD CLARK MD 02/14/24 Reported Medications Levothyroxine Sodium (Levothyroxine Sodium) 175 Mcg Tab, 1 TAB PO DAILY for 90 Days, #90 02/12/24 Pantoprazole Sodium (PANTOPRAZOLE SODIUM) 40 Mg Inj, 40 MG IV, INJ 02/12/24 Cholecalciferol (VITAMIN D3) 2,000 Unit Tab, 1 TAB PO DAILY, #30 TAB 5 Refills 02/12/24 Hydroxychloroquine Sulfate (PLAQUENIL) 200 Mg Tab, 1 TAB PO BID, #180 TAB 3 Refills 02/12/24 Information Source: Patient Mode of Arrival: Ambulatory Severity: Moderate Timing: Days Duration: Since onset Prehospital treatment: None Past Medical History PAST MEDICAL HISTORY: Thyroid Surgical History: Cholecystectomy, , Thyroidectomy 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 ) Family History Family History: Family hx of DM, Family hx of heart arlet Social History Smoker: Cigarettes Alcohol: Rarely Drugs: Denies Drug Use Lives In: Home EENTM: reports: others (congestion ) Respiratory: reports: cough Genitourinary: reports: abnormal vagina bleeding Musculoskeletal: reports: others (generalized bodyaches) All Other Systems: Reviewed and Negative (negatvie unless otherwise stated above or in HPI) Physical Exam General Appearance: No Apparent Distress, Obese HEENT: Normal ENT Inspection, Pharynx Normal, TMs Normal Neck: Full Range of Motion, Non-Tender, Normal, Normal Inspection Respiratory: Chest Non-Tender, Lungs Clear, No Accessory Muscle Use, No Respiratory Distress, Normal Breath Sounds Cardiovascular: No Edema, No JVD, No Murmur, No Gallop, Normal Peripheral Pulse s, Regular Rate/Rhythm Breast Exam: Deferred Gastrointestinal: No Organomegaly, Non Tender, No Pulsatile Mass, Normal Bowel Sounds, Soft Genitalia: Deferred Pelvic: Deferred Rectal: Deferred Extremities: No calf tenderness, Normal capillary refill, Normal inspection, Normal range of motion, Non-tender, No pedal edema Musculoskeletal : Apperance: Normal Neurologic: Alert, actuarial trainee II-XII nml as Tested, No Motor Deficits, Normal Affect, Normal Mood, No Sensory Deficits Cerebellar Function: Normal Reflexes: Normal Skin: Dry, Normal Color, Warm Lymphatic: No Adenopathy Was a procedure done? Was a procedure done?: No Differential Dx Considerations may include: viral syndrome, URI, influenza, covid19, bronchitis, PNA X-Ray, Labs, Meds, VS Vital Signs Date Time Temp Pulse Resp B/P (MAP) Pulse Ox O2 Delivery O2 Flow Rate FiO2 03/12/24 15:47 97.8 97 18 128/75 (92) [address] [address] Ph: [phone] DIAGNOSTIC IMAGING Diagnostic Imaging Report : [id number] Signed PATIENT: JOB CROWE ACCT: [id number] UNIT: [id number] : 1965 LOC: ER ROOM / BED: / AGE / SEX: 58 / F ADM STATUS: REG ER SERVICE 1611 ORDERING PHYSICIAN: SIMEON HAZEL PROCEDURE(s): CXR1 - CHEST XRAY 1 VIEW REASON: cough ORDER NUMBER(s): [id number], ACCESSION NUMBER(s): [id number] CHEST RADIOGRAPH Indication: cough Technique: Single frontal view of the chest was obtained COMPARISON: XY CHEST PORTABLE on DOS: 02/11/24 FINDINGS: Lines and Tubes: None Lungs: Clear Pleura: No effusion. No pneumothorax. Cardiomediastinal contours: Unremarkable Bones: Unremarkable IMPRESSION: No acute disease. ATED BY: GEOFFREY MANSFIELD MD DICTATED DATE/TIME: 03/12/24 163 SIGNED BY: EGOFFREY MANSFIELD MD SIGNED DATE/TIME: 03/12/24 1639 CC: X-Ray, Labs, Meds, VS Comment Patient was no answer when called to ask if she can provide a urine sample presumed patient eloped. Time of 1ST Reevaluation: 16:30 Reevaluation 1ST: Unchanged Patient Education/Counseling: Diagnosis, Treatment Family Education/Counseling: No Family Present Departure 1 Departure Time of Disposition: 22:38 Impression: Primary Impression: Upper respiratory tract infection Qualified Codes: J06.9 - Acute upper respiratory infection, unspecified Disposition: 07 LEFT AWOL/ELOPED Condition: Fair Discharged With: Self Critical Care Note Critical Care Time?: No Stability Stability form required: No Heart Score Heart Score: Heart Score Response (Comments) Value History N/A 0 EKG N/A 0 Age N/A 0 Risk Factors N/A 0 Troponin N/A 0 Total 0 I personally scribed for SIMEON HAZEL ([email or web address]) on 03/12/24 at 16:37. Electronically submitted by Carroll Marcial ([email or web address]). I personally scribed for SIMEON HAZEL ([email or web address]) on 03/12/24 at 17:23. Electronically submitted by Carroll Marcial ([email or web address]). SIMEON HAZEL Mar 12, 2024 16:37
--- NOTE | 2024-03-12 16:43 | DVH ---
CHEST RADIOGRAPH Indication: cough Technique: Single frontal view of the chest was obtained COMPARISON: XY CHEST PORTABLE on DOS: 02/11/24 FINDINGS: Lines and Tubes: None Lungs: Clear Pleura: No effusion. No pneumothorax. Cardiomediastinal contours: Unremarkable Bones: Unremarkable IMPRESSION: No acute disease.
== END 2024-03-13 09:05 | disposition left against medical advice (07) ==
LOC: ER 15:38
DX: J06.9 Acute upper respiratory infection, unspecified (principal); F17.210 Nicotine dependence, cigarettes, uncomplicated; E03.9 Hypothyroidism, unspecified; Z90.49 Acquired absence of other specified parts of digestive tract; Z90.89 Acquired absence of other organs; Z88.8 Allergy status to other drugs, medicaments and biological substances; Z79.899 Other long term (current) drug therapy
CPT/HCPCS: 71045